=== PATIENT | female | born 1950 | race Caucasian/White ===

== ENCOUNTER → 2016-10-29 | Outpatient (CLI) | payer BC ==
[~2016-10-29] MED LIST: ASPIRIN 81MG TA81 MG PO; FEMARA2.5 MG PO
--- NOTE | 2016-10-30 17:01 | RADIOLOGY REPORT PS360 ---
DIG MAMM-DX MARGARETH W/CAD CAD Screening COMPARISON: Digital mammograms 10/17/2014 and 10/30/2015 INDICATION: There is a history of breast cancer patient's sister diagnosed after menopause. This been previous lumpectomy for malignant disease right breast. TECHNIQUE: Standard CC and MLO images were obtained. R2 CAD reviewed. FINDINGS: Mild scattered fibroglandular densities are seen throughout both breasts. Again noted is a small collection of microcalcifications and postsurgical scarring at the post lump ectomy site. There are few scattered benign-appearing calcifications left breast. There is no new or suspicious lesion in either breast and there are no suspicious microcalcifications. IMPRESSION: Fibrofatty parenchyma with stable post lumpectomy scarring right breast, recommend yearly follow-up BI-RADS CATEGORY: 2_Benign RECOMMENDED FOLLOWUP: 12M 12 MONTH FOLLOW-UP (A letter has been sent to the patient regarding results of the study.)
== END ==
LOC: RAD 13:00
DX: C50.919 Malignant neoplasm of unspecified site of unspecified female breast (principal)
CPT/HCPCS: G0204

== ENCOUNTER → 2017-09-16 | Outpatient (CLI) | payer MEDICARE ==
[2017-09-16 14:07] LABS: HEMOGLOBIN 13.7 g/dL (12.2-16.2); LYMPH # 2.5 K/mm3 (0.7-4.5); LYMPH % 31.1 % (10-50.0)
[2017-09-16 15:10] LABS: BUN 21 mg/dL (7-18)
[2017-09-16 15:14] LABS: GFR (ESTIMATED) 63 ML/MIN (59-)
== END ==
LOC: LAB 13:38
PROVIDERS: Internal Medicine
DX: C50.911 Malignant neoplasm of unspecified site of right female breast (principal); Z17.0 Estrogen receptor positive status [ER+]